=== PATIENT | female | born 1965 | race Two or more races ===

== ENCOUNTER 2023-07-30 16:23 | Inpatient (IN) | payer OTHER ==
[~2023-07-30] VITALS: Ht 152.4 cm; Wt 81.6 kg
[~2023-07-30 16:23] MED LIST: CAPOTEN25 MG PO
[2023-07-30 18:01] LABS: HEMATOCRIT 37.1 % (36.0-45.00); HEMOGLOBIN 12.6 g/dL (12.0-15.00); MEAN CELL VOLUME 87.9 fL (80.00-100.00); MEAN CORPUSCULAR HEMOGLOBIN 29.8 pg (27.00-32.0); MEAN CORPUSCULAR HGB CONC 33.9 g/dl (32.0-36.0); PLATELET COUNT 464 K/uL (150-450); RED BLOOD COUNT 4.22 M/uL (4.00-6.00); RED CELL DISTRIBUTION WIDTH 13.2 % (11.5-14.5)
[2023-07-30 18:18] LABS: CALCIUM 9.6 mg/dL (8.5-10.1); CREATININE SERUM 0.94 mg/dL (0.55-1.02); GFR 61.82; POTASSIUM 3.94 mEq/L (3.5-5.1)
[2023-07-30 20:28] LABS: INR 1.14; PROTHROMBIN TIME 11.9 SECONDS (9.0-11.5)
[2023-07-30 20:48] LABS: ABG PH 7.506 (7.35-7.45)
[2023-07-30 20:49] LABS: ABG PO2 52.7 mmHg (80-100); SaO2 90.7 %
[2023-07-30 20:57] LABS: BASE EXCESS 4.8 mmol/l; BICARBONATE 27.8 mmol/l (23-25); Tco2 28.9 mmol/l
[2023-07-30 20:58] LABS: allen test SATISFACTORY; o2 21 %; puncture site RADIAL RIGHT
[2023-08-02 07:46] LABS: HEMATOCRIT 33.6 % (36.0-45.00); MEAN CELL VOLUME 88.8 fL (80.00-100.00); MEAN CORPUSCULAR HEMOGLOBIN 29.1 pg (27.00-32.0); MEAN CORPUSCULAR HGB CONC 32.7 g/dl (32.0-36.0); PLATELET COUNT 411 K/uL (150-450); RED BLOOD COUNT 3.79 M/uL (4.00-6.00); RED CELL DISTRIBUTION WIDTH 13.3 % (11.5-14.5)
[2023-08-02 08:35] LABS: ALBUMIN 2.5 gm/dL (3.4-5.0); BILIRUBIN TOTAL 0.29 mg/dL (0.3-1.2); CALCIUM 8.7 mg/dL (8.5-10.1); CREATININE SERUM 0.8 mg/dL (0.55-1.02); GFR 74.47; GLOBULINA 3.9 G/DL (2.4-3.5); POTASSIUM 3.76 mEq/L (3.5-5.1); TOTAL PROTEIN 6.4 gm/dL (6.4-8.2)
[2023-08-04 07:52] LABS: HEMATOCRIT 33.3 % (36.0-45.00); HEMOGLOBIN 11.1 g/dL (12.0-15.00); MEAN CELL VOLUME 89.5 fL (80.00-100.00); MEAN CORPUSCULAR HEMOGLOBIN 29.7 pg (27.00-32.0); MEAN CORPUSCULAR HGB CONC 33.2 g/dl (32.0-36.0); PLATELET COUNT 394 K/uL (150-450); RED BLOOD COUNT 3.73 M/uL (4.00-6.00)
[2023-08-04 08:27] LABS: ALBUMIN 2.4 gm/dL (3.4-5.0); BILIRUBIN TOTAL 0.33 mg/dL (0.3-1.2); CALCIUM 8.4 mg/dL (8.5-10.1); CREATININE SERUM 0.64 mg/dL (0.55-1.02); GFR 96.34; GLOBULINA 3.4 G/DL (2.4-3.5); POTASSIUM 3.74 mEq/L (3.5-5.1); TOTAL PROTEIN 5.8 gm/dL (6.4-8.2)
[2023-08-04 09:41] LABS: ABG PH 7.445 (7.35-7.45); ABG pCO2 42.6 mmHg (35-45)
[2023-08-04 09:42] LABS: ABG PO2 69.6 mmHg (80-100); BASE EXCESS 4.1 mmol/l; BICARBONATE 28.6 mmol/l (23-25); SaO2 94.7 %; Tco2 29.9 mmol/l; o2 21 %
[2023-08-04 09:43] LABS: allen test SATISFACTORY; puncture site RADIAL RIGHT
[2023-08-04] MEDS ORDERED: AZITHROMYCIN250 MG PO (10:39)
== END 2023-08-04 11:24 | disposition home or self-care (01) | DRG 195 ==
LOC: ER 16:23 → SURG 22:34 → SEC-K 22:34 → SURG 07-31 04:43 → SURH 08-02 16:21
PROVIDERS: General Practice; Internal Medicine; ADMIT Internal Medicine; ATTEND Internal Medicine
PROC: 5A0945A Assistance with Respiratory Ventilation, 24-96 Consecutive Hours, High Flow/Velocity Cannula (ICD-10-PCS; 2023-07-30)
PROC: 3E0F7GC Introduction of Other Therapeutic Substance into Respiratory Tract, Via Natural or Artificial Opening (ICD-10-PCS; principal; 2023-07-31)
DX: J18.8 Other pneumonia, unspecified organism (principal); R09.02 Hypoxemia; D69.6 Thrombocytopenia, unspecified; E11.9 Type 2 diabetes mellitus without complications; I10 Essential (primary) hypertension; Z79.84 Long term (current) use of oral hypoglycemic drugs; Z79.4 Long term (current) use of insulin